=== PATIENT | female | born 1980 | race African-American/Black ===

== ENCOUNTER → 2016-11-28 | Day surgery (SDC) | payer BC ==
[~2016-11-28] MED LIST: LACTATED RINGER'S 1000 ML INJ 1,000 ML ONE; LIDOCAINE 1%/EPINEPHrine 1:100,000 SOLN 20 ML VIAL ONE; MIDAZOLAM HCL 2 MG/2 ML VIAL ONE; NEOMYCIN/POLYMYXIN/BACITRACIN OINT 15 GM TUBE ONE; ONDANSETRON HCL 4 MG/2 ML VIAL IV PUSH ONE; PRED20 PO; PROPOFOL 200 MG/20 ML AMP IV ONE; TUSSSUS PO; Z.0.NO CURRENT MEDS; ZITH500T PO; ceFAZolin 2 GM PREMIX 50 ML ONE
--- NOTE | 2016-11-28 16:40 | TN ---
cc: SERGEY HEADLEY M.D. DATE OF SURGERY 11/28/2016 PREOPERATIVE DIAGNOSIS Subcutaneous mass right scalp. 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 PROCEDURE Excision of bony protuberance right skull using TPS drill with an SP [address]GE[address]. Sergey Headley ANESTHESIA General. INDICATIONS This is a very pleasant 36-year-old -[place] woman who is noted a slightly increasing size of a mass in the right side above the forehead above the hairline. It is mildly tender and unsightly and she would like it removed. Physical examination in my office demonstrated a firm mass that moves slightly with manipulation. There was no overlying skin erythema, skin pit or fluctuance but there was mild tenderness. INTRAOPERATIVE FINDINGS Bony protuberance off the skull. Intraoperative telephone consultation with Dr. Aleksandr Viveros of neurosurgery recommended shaving it off with a powered blade. The bony pieces were removed and sent to pathology. There was less than 5 ml of blood loss. DESCRIPTION OF PROCEDURE IN DETAIL The patient identified as Tansey Black taken to the operating room and placed in the supine position. Sequential compression devices were placed on bilateral lower extremities. Following induction of adequate general anesthesia with a laryngeal mask the area of concern in the right anterior scalp was prepped and draped in usual sterile fashion with Betadine. A time-out procedure was performed. Following completion of time-out procedure to everyone's satisfaction within the room, proposed incision over the mass along the lines of the skin was infiltrated with local anesthetic and the incision carried out with scalpel. Hemostasis controlled with electrocautery. Dissection continued posteriorly through the frontal belly of the epicranius muscle down to the mass which was completely calcified. There was shelving edge anterior laterally but it did not separate easily from the underlying skull. Intraoperative telephone conversation consultation with Dr. Viveros indicated he recommended that we excise the mass using a powered oscillating saw. The TPS was brought on the surgical field and a narrow blade SP 212 oscillating saw blade was selected. The saw blade was used to undermine and then chip off pieces of the bony protuberance until it was completely excised. The saw blade was used then to smooth out the underlying bone where the mass was had been excised. The bone was passed off the field for pathologic evaluation. The wound was copiously irrigated with saline. The patient was given 2 grams of IV Ancef intraoperatively. Once the wound was assured to be dry, the subcutaneous tissue and the most superficial muscular fibers were reapproximated with interrupted inverted 3-0 Vicryl suture. The skin was approximated running 4-0 nylon stitch. Antibiotic ointment and an eye patch with tape was used to cover the wound. The patient tolerated the procedure without apparent complication. Sponge, needle and instrument counts were correct at the end of the case. MD MONIK Palma/KRISTY /4:18 PM /4:28 PM
== END | disposition home or self-care (01) ==
LOC: ESDC 13:13
PROVIDERS: ATTEND Surgery Trauma Surgery
DX: D16.9 Benign neoplasm of bone and articular cartilage, unspecified (principal)
CPT/HCPCS: 00190; 21026; 88305; 88311; J0690; J2250; J2405; J3010; J7120; 88307